=== PATIENT | female | born 1970 | race Caucasian/White ===

== ENCOUNTER 2017-01-30 01:22 | Emergency (ER) | payer SELFPAY ==
[2017-01-30] MEDS ORDERED: MORPHINE SULFATE 10 MG/ML INJ IV ONE (01:41)
[2017-01-30] MEDS ORDERED: DIPHENHYDRAMINE HCL 50 MG/ML VIAL IV ONE ×2 (01:41→05:03)
[2017-01-30] MEDS ORDERED: ONDANSETRON HCL INJ/PF 4 MG/2 ML SDV IV ONE ×2 (01:41→04:55)
[2017-01-30] MEDS ORDERED: NORMAL SALINE 1000 ML 1,000 ML IV ONE ×2 (01:42)
--- NOTE | 2017-01-30 01:45 | ER Document Report ---
ED GI/ - General Chief Complaint: Possible Kidney Stone Stated Complaint: PELVIC PAIN,VOMITING Time Seen by Provider: 01/30/17 01:34 Notes: Patient is a 46-year-old female comes emergency department for chief complaint of flank pain on the right side and multiple episodes of vomiting, she states she started 1.5 days ago but cannot stop vomiting. She does have a history of kidney stones, has had stents and lithotripsy, does not currently have a stent in place. She sees Dr. Stevens in [place]. She denies fever. She does report some hematuria. She denies any other medical history, denies any daily medications, denies any other surgeries. TRAVEL OUTSIDE OF THE [place] IN LAST 30 DAYS: No - Related Data Allergies/Adverse Reactions: ketorolac tromethamine [From Toradol] Allergy (Severe, Verified 09/12/12 17:43) Penicillins Allergy (Severe, Verified 09/12/12 17:43) Swelling of Throat Iodinated Contrast- Oral and IV Dye [IV Dye, Iodine Containing] Allergy (Mild, Verified 09/12/12 17:43) meperidine HCl [From Demerol] Adverse Reaction (Mild, Verified 09/12/12 17:43) Past Medical History - General Information source: Patient - Social History Smoking Status: Never Smoker Lives with: Family Family History: None, Hypertension - Past Medical History Cardiac Medical History: Reports: Hx Hypertension Pulmonary Medical History: Denies: Hx Tuberculosis Renal/ Medical History: Reports: Hx Kidney Stones, Hx Ovarian Cysts GI Medical History: Reports: Hx Gastroesophageal Reflux Disease Past Surgical History: Reports: Hx Gynecologic Surgery - ovarian cyst, Hx Kidney (Renal Surgery) - 2 basket procedures, 3 stents placed in right kidney and 4 lithotripsies. Denies: Hx Appendectomy, Hx Bowel Surgery, Hx Section, Hx Cholecystectomy, Hx Coronary Artery Bypass Graft, Hx Gastric Bypass Surgery, Hx Herniorrhaphy, Hx Hysterectomy, Hx Mastectomy, Hx Pacemaker, Hx Tonsillectomy, Hx Tubal Ligation - Immunizations Immunizations up to date: Yes Hx Diphtheria, Pertussis, Tetanus Vaccination: Yes Hx Pneumococcal Vaccination: 03/24/13 Review of Systems - Review of Systems Constitutional: No symptoms reported EENT: No symptoms reported Cardiovascular: No symptoms reported Respiratory: No symptoms reported Gastrointestinal: See HPI Genitourinary: See HPI Female Genitourinary: No symptoms reported Musculoskeletal: No symptoms reported Skin: No symptoms reported Hematologic/Lymphatic: No symptoms reported Neurological/Psychological: No symptoms reported Physical Exam - Vital signs Vitals: Temp Pulse Resp BP Pulse Ox 98.3 F 104 H 16 162/114 H 98 01/30/17 01:26 01/30/17 01:26 01/30/17 01:26 01/30/17 01:26 01/30/17 01:26 Interpretation: Normal - General General appearance: Alert, Anxious In distress: None - HEENT Head: Normocephalic, Atraumatic Eyes: Normal Pupils: PERRL - Respiratory Respiratory status: No respiratory distress Chest status: Nontender Breath sounds: Normal Chest palpation: Normal - Cardiovascular Rhythm: Regular. No: Tachycardia Heart sounds: Normal auscultation, S1 appreciated, S2 appreciated Murmur: No - Abdominal Inspection: Normal Distension: No distension Bowel sounds: Normal Tenderness: Nontender. No: Tender, McBurney's point, Guarding Organomegaly: No organomegaly - Back Back: Normal, Nontender. No: Tender, CVA tenderness - Extremities General upper extremity: Normal inspection, Nontender, Normal color, Normal ROM , Normal temperature General lower extremity: Normal inspection, Nontender, Normal color, Normal ROM , Normal temperature, Normal weight bearing. No: Emiliana's sign - Neurological Neuro grossly intact: Yes Cognition: Normal Orientation: AAOx4 [place] Coma Scale Eye Opening: Spontaneous Kenneth Coma Scale Verbal: Oriented Kenneth Coma Scale Motor: Obeys Commands [place] Coma Scale Total: 15 Speech: Normal Motor strength normal: LUE, RUE, LLE, RLE Sensory: Normal - Psychological Associated symptoms: Other - Excitable, slightly dramatic, appears slightly uncooperative - Skin Skin Temperature: Warm Skin Moisture: Dry Skin Color: Normal Course - Re-evaluation Re-evalutation: Patient does not appear to be in distress, she was given initial pain medicine, nausea medicine, IV fluids. Abdomen is completely benign with no tenderness whatsoever, I do not appreciate any CVA tenderness either. Afebrile. Borderline tachycardia. No hypotension. Patient did vomit just before given her medications. She does have a leukocytosis at 16,000 and evidence of dehydration on her workup, there is also some hematuria but no infection in the urine. Ultrasound was performed and shows no obstructive pathology of the urinary tract. There is a punctate stone in the left. Patient resting quietly, when I enter the room she becomes more agitated in appearance and asks for pain medication. I explained patient that we would hydrate her and treat her nausea but she would not be receiving any more pain medication except for tramadol. Patient was also given Toradol which she is reportedly allergic to by EMS but she did not have any obvious allergic symptoms. Patient given monthly medication which she did well with, she was given fluids, she immediately drank the entire cup and can and then vomited. It appeared to be intentional. I asked patient about this and she denied this, she states that she just wants to stop vomiting and feel better. I did agree to give her additional medications after this, after that she did improve, she was able to tolerate oral fluids without difficulty, she requests a GI cocktail as well and she was given this minus the Reglan because she is ready been given multiple nausea medications. She tolerated this very well as well. Patient is easily agitated, when I observe her from a distance she is calm and relaxed, when I enter the room or the nurse enters the room she becomes animated , appears excited, complains of pain and nausea. Patient not tachycardic when I listen to her after spending time examining her although she becomes tachycardic when her vital signs are checked. She does have some anxiety component it appears. Discussed workup with patient, patient will be discharged now that she has been hydrated and she is tolerating oral fluids. No obvious emergent abnormality, no evidence of acute abdominal abnormality or infection. Discussed follow-up and return precautions, patient states understanding and agreement. - Vital Signs Vital signs: Temp Pulse Resp BP Pulse Ox 97.9 F 109 H 16 171/104 H 100 01/30/17 06:43 01/30/17 06:43 01/30/17 01:26 01/30/17 06:43 01/30/17 06:43 - Laboratory Result Diagrams: 01/30/17 02:10 01/30/17 02:10 Laboratory results interpreted by me: 01/30/17 01/30/17 01/30/17 02:10 02:10 03:31 WBC 16.9 H RDW 14.4 H Seg Neuts % (Manual) 90 H Lymphocytes % (Manual) 8 L Monocytes % (Manual) 2 L Abs Neuts (Manual) 15.2 H Sodium 146.4 H Potassium 3.5 L AST 42 H ALT 77 H Urine Protein 100 H Urine Glucose (UA) 50 H Urine Ketones 20 H Urine Blood MODERATE H Discharge - Discharge Clinical Impression: Flank pain, Dehydration Vomiting Qualifiers: Vomiting type: unspecified Vomiting Intractability: non-intractable Nausea presence: with nausea Qualified Code(s): R11.2 - Nausea with vomiting, unspecified Condition: Stable Disposition: HOME, SELF-CARE Additional Instructions: Your ultrasound shows a small stone in the left kidney but no obstructive findings or obvious reasons for your pain symptoms. Take the Phenergan, Ultracet, and Pepcid as prescribed. Start with clear fluids , progress to bland food. Follow-up with primary care. Return to emergency department for any concerning or worsening symptoms including fever, developing abdominal pain, or any other concerning symptoms. Prescriptions: Famotidine [Pepcid 20 mg Tablet] 20 mg PO DAILY #12 tablet Promethazine HCl [Phenergan 25 mg Tablet] 1 - 2 tab PO Q6H PRN #20 tablet PRN Reason: Tramadol HCl/Acetaminophen [Ultracet 37.5 mg/325 mg Tablet] 1 each PO ASDIR PRN #30 tablet PRN Reason: Referrals: ZEUS HANNA MD [Primary Care Provider] - Follow up as needed
[2017-01-30 02:39] LABS: ALANINE AMINOTRANSFERASE 77 U/L (9-52); ALBUMIN 4.9 g/dL (3.5-5.0); ALKALINE PHOSPHATASE 124 U/L (38-126); ASPARTATE AMINO TRANSFERASE 42 U/L (14-36); BILIRUBIN,DIRECT 0.4 mg/dL (0.0-0.4); BILIRUBIN,TOTAL 0.5 mg/dL (0.2-1.3); BLOOD UREA NITROGEN 12 mg/dL (7-20); CREATININE RESULT 0.67 mg/dL (0.52-1.25); GLUCOSE 106 mg/dL (75-110); LIPASE 49.1 U/L (23-300); POTASSIUM 3.5 mmol/L (3.6-5.0); TOTAL PROTEIN 8.2 g/dL (6.3-8.2)
[2017-01-30 02:47] LABS: ANION GAP 19 (5-19); CARBON DIOXIDE 27 mmol/L (22-30); CHLORIDE 100 mmol/L (98-107); SODIUM 146.4 mmol/L (137-145)
[2017-01-30 02:49] LABS: HEMATOCRIT 43.5 % (36.0-47.0); HEMOGLOBIN 14.6 g/dL (12.0-15.5); HGB HCT DIFFERENCE 0.3; MEAN CORPUSCULAR HEMOGLOBIN 30.9 pg (27.0-33.4); MEAN CORPUSCULAR HGB CONC 33.6 g/dL (32.0-36.0); MEAN CORPUSCULAR VOLUME 92 fl (80-97); RED BLOOD COUNT 4.74 10^6/uL (3.72-5.28); RED CELL DISTRIBUTION WIDTH 14.4 % (11.5-14.0); WHITE BLOOD COUNT 16.9 10^3/uL (4.0-10.5)
[2017-01-30 03:10] LABS: BASOPHILS % (MANUAL) 0 % (0-2); EOSINOPHILS % (MANUAL) 0 % (0-6); LYMPHOCYTES % (MANUAL) 8 % (13-45); TOTAL CELLS COUNTED 100
[2017-01-30 03:11] LABS: ANISOCYTOSIS SLIGHT; POIKILOCYTOSIS 1+; STOMATOCYTES 1+
[2017-01-30] MEDS ORDERED: TRAMADOL HCL 50 MG TABLET PO ONE ×2 (03:22→04:38)
[2017-01-30] MEDS ORDERED: PROMETHAZINE HCL 25 MG TABLET PO ONE (03:22)
--- NOTE | 2017-01-30 03:26 | RADIOLOGY REPORT (SQ) ---
EXAM DESCRIPTION: U/S RETROPERITON (RENAL/AORTA) CLINICAL HISTORY: 46 years, Female, flank pain, vomiting COMPARISON: Flank pain. TECHNIQUE: Grayscale and color Doppler techniques. LIMITATIONS: None. FINDINGS: Right kidney is normal and measures 11.4 cm x 4.8 cm in greatest sagittal dimension. No right urinary system obstruction or right perinephric fluid collection. There is strong arterial and venous blood flow to the right kidney using color Doppler technique. Suspect punctate calcified nonobstructing stone in the left upper renal collecting system. The left kidney is otherwise normal measuring 10.5 cm x 4.8 cm in greatest sagittal dimension. There is strong arterial and venous blood flow to the left kidney using color Doppler technique. Partially distended fluid-filled urinary bladder is grossly normal. No free pelvic fluid or ascites. IMPRESSION: 1. No urinary system obstruction. 2. Punctate nonobstructing left upper renal collecting system stone. 2011 [employer]- All Rights Reserved
[2017-01-30] MEDS ORDERED: PROMETHAZINE HCL INJ 25 MG/1 ML VIAL IM ONE (03:53)
[2017-01-30 03:59] LABS: APPEARANCE,URINE SLIGHTLY-CLOUDY; BILIRUBIN,URINE NEGATIVE (NEGATIVE); GLUCOSE, URINE 50 mg/dL (NEGATIVE); KETONES,URINE 20 mg/dL (NEGATIVE); LEUKOCYTE ESTERASE,URINE NEGATIVE (NEGATIVE); NITRITE,URINE NEGATIVE (NEGATIVE); PROTEIN,URINE 100 mg/dL (NEGATIVE); URINE SPECIFIC GRAVITY 1.021; UROBILINOGEN,URINE NEGATIVE mg/dL (<2.0)
[2017-01-30] MEDS ORDERED: SUCRALFATE 1 GM TABLET PO ONE (04:38)
[2017-01-30] MEDS ORDERED: FAMOTIDINE 20 MG TABLET PO ONE (04:38)
[2017-01-30 05:46] LABS: URINE BARBITURATES SCREEN NEGATIVE; URINE METHADONE SCREEN NEGATIVE; URINE OPIATES LOW UNCONFIRMED POSITIVE; URINE PHENCYCLIDINE SCREEN NEGATIVE
[2017-01-30] MEDS ORDERED: LIDOCAINE 2% VISCOUS SOLN 20 ML UDCUP PO ONE (06:24)
[2017-01-30] MEDS ORDERED: MAG HYDROX/AL HYDROX/SIMETH SUSP 30 ML UDCUP PO ONE (06:24)
[2017-01-30 06:45] VITALS: BP 171/104
== END 2017-01-30 06:49 | disposition home or self-care (01) ==
LOC: ER 01:22
DX: N20.0 Calculus of kidney (principal); R11.2 Nausea with vomiting, unspecified; R10.9 Unspecified abdominal pain; E86.0 Dehydration; R31.9 Hematuria, unspecified; D72.829 Elevated white blood cell count, unspecified; I10 Essential (primary) hypertension; Z98.890 Other specified postprocedural states; Z88.8 Allergy status to other drugs, medicaments and biological substances; Z88.0 Allergy status to penicillin; Z91.041 Radiographic dye allergy status; Z87.42 Personal history of other diseases of the female genital tract
CPT/HCPCS: 96376; 99284; 96372; 96361; 96374; 96375; 36415; 83690; 85025; 81025; 80053; 81001; 80307; 76770; J1200; J3490; J2270; J2550; J2405; J7030